=== PATIENT | female | born 1990 | race Caucasian/White ===

== ENCOUNTER 2020-11-11 00:15 | Emergency (ER) | payer OTHER ==
[2020-11-11 01:06] LABS: RED BLOOD COUNT 4.16 M/UL (4.00-5.10); WHITE BLOOD COUNT 11.4 K/UL (4.5-11.0)
[2020-11-11 01:26] LABS: BUN/CREATININE RATIO 15 (0-10)
== END 2020-11-11 02:39 | disposition home or self-care (01) ==
LOC: ER1 00:15
PROVIDERS: Emergency Medicine
DX: R10.9 Unspecified abdominal pain (principal); R11.2 Nausea with vomiting, unspecified; Z98.51 Tubal ligation status
CPT/HCPCS: 80053; 80307; 81001; 83690; 84703; 85025; 87086; 99284